=== PATIENT | male | born 1995 | race Caucasian/White ===

== ENCOUNTER 2017-09-12 13:34 | Emergency (ER) | payer BC ==
[2017-09-12 16:59] VITALS: BP 145/73
--- NOTE | 2017-09-12 17:23 | UC ---
Knee Pain HPI - HPI Summary HPI Summary: 21 yo male injured his right knee snow boarding landed on knee yesterday able to continue snow boarding when he got home knee was swollen hurts medially justino slightly - History of Current Complaint Chief Complaint: UCUpperExtremity Stated Complaint: RIGHT KNEE INJURY Time Seen by Provider: 09/12/17 17:07 Hx Obtained From: Patient Onset/Duration: Sudden Onset Severity Initially: Moderate Severity Currently: Moderate Pain Intensity: 8 Pain Scale Used: 0-10 Numeric Character: Dull, Aching Aggravating Factor(s): Movement, Weight Bearing Alleviating Factor(s): Rest Associated Signs And Symptoms: Positive: Swelling - Risk Factors Septic Arthritis Risk Factor: Negative - Allergies/Home Medications Allergies/Adverse Reactions: Allergies Allergy/AdvReac Type Severity Reaction Status Date / Time No Known Allergies Allergy Verified 09/12/17 16:59 PMH/Surg Hx/FS Hx/Imm Hx Previously Healthy: Yes - Surgical History Surgical History: None - Family History Known Family History: Negative: Cardiac Disease, Hypertension, Diabetes - Social History Alcohol Use: Occasionally Substance Use Type: Marijuana Substance Use Comment - Amount & Last Used: last used 3 hours ago. daily use Smoking Status (MU): Light Every Day Tobacco Smoker Type: Cigarettes Amount Used/How Often: 2-3 cigarettes daily - Immunization History Most Recent Tetanus Shot: unknown Vaccination Up to Date: Yes Review of Systems Constitutional: Negative Skin: Negative Eyes: Negative ENT: Negative Respiratory: Negative Cardiovascular: Negative Gastrointestinal: Negative Genitourinary: Negative Motor: Negative Neurovascular: Negative Musculoskeletal: Arthralgia, Edema Neurological: Negative Psychological: Negative Is Patient Immunocompromised?: No All Other Systems Reviewed And Are Negative: Yes Physical Exam Triage Information Reviewed: Yes Appearance: Well-Appearing, No Pain Distress, Well-Nourished Vital Signs: Initial Vital Signs Temp 99.1 F 09/12/17 16:54 Pulse 68 09/12/17 16:54 Resp 16 09/12/17 16:54 BP 145/73 09/12/17 16:54 Pulse Ox 99 09/12/17 16:54 Vital Signs Reviewed: Yes Eyes: Positive: Conjunctiva Clear ENT: Positive: Hearing grossly normal. Negative: Trismus, Muffled voice, Hoarse voice Neck: Positive: Supple Respiratory: Positive: Lungs clear, Normal breath sounds, No respiratory distress Cardiovascular: Positive: RRR, No Murmur Musculoskeletal: Positive: ROM Intact, Other: - knee stable/large prepatellar effusion Psychological Exam: Normal Skin Exam: Normal Knee Pain Course/Dx - Differential Dx/Diagnosis Provider Diagnoses: right knee contusion. right pre patellar effusion Discharge - Discharge Plan Condition: Stable Disposition: HOME Patient Education Materials: Contusion in Adults (ED), R.I.C.E. Treatment (ED) Referrals: Jairo Parra MD [Medical Doctor] - As Soon As Possible Additional Instructions: your xr showed no fracture remove syd at bedtime you may re wrap tomorrow elevate ice advil or aleve you have a large prepatellar effusion ....a collection of fluid in your prepatellar bursa I suggest an orthopedic follow up
--- NOTE | 2017-09-12 17:41 | RAD ---
HISTORY: Right knee injury COMPARISONS: None VIEWS: 4, Frontal, lateral, axial, and oblique views of the right knee FINDINGS: BONE DENSITY: Normal. BONES: There is no displaced fracture. JOINTS: There is no arthropathy. There is no suprapatellar joint effusion or lipohemarthrosis. ALIGNMENT: There is no dislocation. SOFT TISSUES: There is prepatellar soft tissue swelling. OTHER FINDINGS: None. IMPRESSION: PREPATELLAR SOFT TISSUE SWELLING. NO ACUTE OSSEOUS INJURY. IF SYMPTOMS PERSIST, RECOMMEND REPEAT IMAGING.
== END 2017-09-12 18:00 | disposition home or self-care (01) ==
LOC: UCCORT 13:34
DX: S80.01XA Contusion of right knee, initial encounter (principal); M25.461 Effusion, right knee; X58.XXXA Exposure to other specified factors, initial encounter; Y93.23 Activity, snow (alpine) (downhill) skiing, snowboarding, sledding, tobogganing and snow tubing; Y92.9 Unspecified place or not applicable; F12.90 Cannabis use, unspecified, uncomplicated; F17.210 Nicotine dependence, cigarettes, uncomplicated
CPT/HCPCS: 99212; G0463

== ENCOUNTER 2018-05-13 16:17 | Emergency (ER) | payer BC ==
[2018-05-13 17:07] VITALS: BP 129/67
--- NOTE | 2018-05-13 18:13 | UC ---
Knee Pain HPI - HPI Summary HPI Summary: pt c/o sudden onset of right knee swelling, pain, erythema. Denies injury or recent trauma. Denies recent illness. - History of Current Complaint Chief Complaint: UCLowerExtremity Stated Complaint: RIGHT KNEE PAIN Time Seen by Provider: 05/13/18 17:25 Hx Obtained From: Patient Onset/Duration: Sudden Onset, Lasting Days, Still Present Severity Initially: Moderate Severity Currently: Severe Pain Intensity: 9 Character: Dull, Aching, Stiffness Aggravating Factor(s): Movement, Weight Bearing, Prolonged Standing, Stairs Alleviating Factor(s): Nothing Associated Signs And Symptoms: Positive: Swelling, Redness Able to Bear Weight: Yes - minimal - Risk Factors Septic Arthritis Risk Factor: Negative Gout Risk Factor: Male - Allergies/Home Medications Allergies/Adverse Reactions: Allergies Allergy/AdvReac Type Severity Reaction Status Date / Time No Known Allergies Allergy Verified 05/13/18 17:08 PMH/Surg Hx/FS Hx/Imm Hx Previously Healthy: Yes - Surgical History Surgical History: None - Family History Known Family History: Negative: Cardiac Disease, Hypertension, Diabetes - Social History Occupation: Employed Full-time Lives: With Family Alcohol Use: Occasionally Substance Use Type: Marijuana Substance Use Comment - Amount & Last Used: last used 3 hours ago. daily use Smoking Status (MU): Light Every Day Tobacco Smoker Type: Cigarettes Amount Used/How Often: 2-3 cigarettes daily Have You Smoked in the Last Year: Yes - Immunization History Most Recent Tetanus Shot: unknown Vaccination Up to Date: Yes Review of Systems Constitutional: Negative Skin: Other - erythema Eyes: Negative ENT: Negative Respiratory: Negative Cardiovascular: Negative Gastrointestinal: Negative Genitourinary: Negative Motor: Decreased ROM - right knee Neurovascular: Negative Musculoskeletal: Arthralgia, Decreased ROM, Edema, Myalgia Neurological: Negative Psychological: Negative Is Patient Immunocompromised?: No All Other Systems Reviewed And Are Negative: Yes Physical Exam Triage Information Reviewed: Yes Appearance: Well-Appearing Vital Signs: Initial Vital Signs Temp 98.4 F 05/13/18 17:03 Pulse 79 05/13/18 17:03 Resp 16 05/13/18 17:03 BP 129/67 05/13/18 17:03 Pulse Ox 100 05/13/18 17:03 Vital Signs Reviewed: Yes Eye Exam: Normal ENT Exam: Normal Dental Exam: Normal Neck exam: Normal Respiratory: Positive: No respiratory distress Musculoskeletal Exam: Other Musculoskeletal: Positive: ROM Limited @ - right knee, Edema @ - left anterior proximal medial knee, palpable, soft mass, c/o timur wiht palpation, mild circular erythema with edema Neurological Exam: Normal Psychological Exam: Normal Skin Exam: Other - erythema Diagnostics - Radiology No standard instances Radiology Interpretation Completed By: Radiologist - radiologist did not read xray prior to discharge. Knee Pain Course/Dx - Differential Dx/Diagnosis Differential Diagnosis/HQI/PQRI: Bursitis, DVT, Gout, Infection Provider Diagnoses: right knee bursitis Discharge - Sign-Out/Discharge Documenting (check all that apply): Patient Departure All imaging exams completed and their final reports reviewed: No - Discharge Plan Condition: Stable Disposition: HOME Prescriptions: Sulfamethox/Trimethoprim DS* [Bactrim DS 800/160 TAB*] 1 tab PO Q12H #20 tab Patient Education Materials: Knee Bursitis (ED) Forms: *Work Release Referrals: Jairo Parra MD [Medical Doctor] - As Soon As Possible Manjit Augustin MD [Primary Care Provider] - - Billing Disposition and Condition Condition: STABLE Disposition: Home
--- NOTE | 2018-05-14 07:16 | RAD ---
INDICATION: Spontaneous swelling and erythema. TECHNIQUE: 4 views of the right knee were obtained. FINDINGS: There is diffuse soft tissue swelling. The bones are normal alignment. No joint effusion or fracture is seen. Joint spaces appear maintained. IMPRESSION: DIFFUSE SOFT TISSUE SWELLING. R0
--- NOTE | 2018-05-14 15:15 | UC ---
- Progress Note Progress Note: Patient Name: JESSIE COHEN Medical Record#: [id number] Ordering Physician: Mickie Nicole NP Acct.#: [id number] : 1995 Age: 22 Sex: M Location: [facility] Exam Date: 05/13/181731 ADM Status: [facility] ER Order Information: KNEE RIGHT 4+ VWS Accession Number: [id number] CPT: 31332 INDICATION: Spontaneous swelling and erythema. TECHNIQUE: 4 views of the right knee were obtained. FINDINGS: There is diffuse soft tissue swelling. The bones are normal alignment. No joint effusion or fracture is seen. Joint spaces appear maintained. IMPRESSION: DIFFUSE SOFT TISSUE SWELLING. R0 <Electronically signed by Cruz Choi MD in OV> 05/14/18712 Dictated By: Cruz Choi MD Dictated Date/Time: 05/14/18712 Transcribed Date/Time: 05/14/18709 Copy to: CC:Mickie Nicole NP; Genesis Moore MD; Manjit Augustin MD Imaging - [facility] Urgent [facility] [address] [address] ph ([phone]) ph ([phone]) ph ([phone]) This report is only to be considered final once signed by the Provider(s) as displayed in the "<Electronically Signed by >" field (s). Absence of a signature indicates the report is in a draft status and still needs to be finalized. In the event this document was created by someone other than the signing Provider, the individual initiating the document will be listed in the "Entered by:" or "Dictated by:" rea. 1 of 1 Discharge - Sign-Out/Discharge Documenting (check all that apply): Post-Discharge Follow Up All imaging exams completed and their final reports reviewed: Yes - Discharge Plan Condition: Stable Disposition: HOME Prescriptions: Sulfamethox/Trimethoprim DS* [Bactrim DS 800/160 TAB*] 1 tab PO Q12H #20 tab Patient Education Materials: Knee Bursitis (ED) Forms: *Work Release Referrals: Jairo Parra MD [Medical Doctor] - As Soon As Possible Manjit Augustin MD [Primary Care Provider] - - Billing Disposition and Condition Condition: STABLE Disposition: Home
== END 2018-05-13 18:43 | disposition home or self-care (01) ==
LOC: UCCORT 16:17
DX: M71.9 Bursopathy, unspecified (principal)
CPT/HCPCS: 99212; G0463

== ENCOUNTER 2019-07-07 18:19 | Emergency (ER) | payer BC ==
--- NOTE | 2019-07-07 19:00 | ED ---
Psychiatric Complaint - HPI Summary HPI Summary: This pt is 23 y/o male presenting to [facility] c/o racing thoughts, paranoia, and feeling anxious since 2 days ago after deciding to quit drug abuse. Pt reports he was consuming MDMA and decided to quit 3 days ago, he last used at 11:00 on 07/04/19. He notes he has not drank alcohol since then as well. Pt reports since then he has been feeling jittery, anxious, with racing thoughts of paranoia. He describes he feels like he is projecting his own thoughts for no reason. Pt denies SI or HI thoughts/plan. Family members report pt is very anxious, with irritable mood swings, and has thoughts that are not realistic. Pt does admit to smoking cigarettes and marijuana. PMHx: depression, anxiety. He does not take any medications. Per family member, pt went to rehab 3 years ago, was in the same situation, and admitted to a psych unit for 7 days. - History Of Current Complaint Chief Complaint: EDMentalHealth Time Seen by Provider: 07/07/19 18:53 Hx Obtained From: Patient, Family/Store Host Onset/Duration: Lasting Days, Still Present Timing: Days Severity Currently: Moderate Character: Manic Aggravating Factor(s): Recent Stress Alleviating Factor(s): Nothing Associated Signs And Symptoms: Positive: Paranoid Behavior Related History: Positive For: Prior Psychiatric Issues Has Suicidal: Denies: Thoughts, With A Plan Has Homicidal: Denies: Thoughts, With A Plan Recent Stressor(s): coming off drugs - Allergies/Home Medications Allergies/Adverse Reactions: Allergies Allergy/AdvReac Type Severity Reaction Status Date / Time pollen extracts Allergy Eyes Verified 07/07/19 18:32 Itchy/Swollen/Red/Watery Home Medications: Home Medications NK [No Home Medications Reported] 07/07/19 [History Confirmed 07/07/19] PMH/Surg Hx/FS Hx/Imm Hx Endocrine/Hematology History: Denies: Hx Diabetes Respiratory History: Reports: Hx Asthma Psychiatric History: Reports: Hx Substance Abuse Infectious Disease History: No Infectious Disease History: Denies: Traveled Outside the [place] in Last 30 Days - Family History Known Family History: Negative: Cardiac Disease, Hypertension, Diabetes - Social History Alcohol Use: Occasionally Substance Use Type: Reports: Marijuana Substance Use Comment - Amount & Last Used: 1800 today Smoking Status (MU): Light Every Day Tobacco Smoker Type: Cigarettes Amount Used/How Often: 2-3 cigarettes daily Have You Smoked in the Last Year: Yes Review of Systems Constitutional: Other - POSITIVE: jittery Negative: Fever Cardiovascular: Negative Respiratory: Negative Gastrointestinal: Negative Psychological: Other - POSITIVE: paranoia, racing thoughts, anxious, irritable Positive: Anxious. Negative: Other - NEGATIVE: SI or HI All Other Systems Reviewed And Are Negative: Yes Physical Exam - Summary Physical Exam Summary: VITAL SIGNS: Reviewed. GENERAL: Patient is a well-developed and nourished male who is lying comfortable in the stretcher. Patient is not in any acute respiratory distress. HEAD AND FACE: No signs of trauma. No ecchymosis, hematomas or skull depressions. No sinus tenderness. EYES: PERRLA, EOMI x 2, No injected conjunctiva, no nystagmus. EARS: Hearing grossly intact. Ear canals and tympanic membranes are within normal limits. MOUTH: Oropharynx within normal limits. NECK: Supple, trachea is midline, no adenopathy, no JVD, no carotid bruit, no c- spine tenderness, neck with full ROM. CHEST: Symmetric, no tenderness at palpation LUNGS: Clear to auscultation bilaterally. No wheezing or crackles. CVS: Regular rate and rhythm, S1 and S2 present, no murmurs or gallops appreciated. ABDOMEN: Soft, non-tender. No signs of distention. No rebound no guarding, and no masses palpated. Bowel sounds are normal. EXTREMITIES: FROM in all major joints, no edema, no cyanosis or clubbing. NEURO: Alert and oriented x 3. No acute neurological deficits. Speech is normal and follows commands. SKIN: Dry and warm PSYCH: Pt is anxious. He denies SI or HI. Triage Information Reviewed: Yes Vital Signs On Initial Exam: Initial Vitals Temp Pulse Resp BP Pulse Ox 98.1 F 98 16 166/114 99 07/07/19 18:28 07/07/19 18:28 07/07/19 18:28 07/07/19 18:28 07/07/19 18:28 Vital Signs Reviewed: Yes Procedures - Sedation Patient Received Moderate/Deep Sedation with Procedure: No Diagnostics - Vital Signs Vital Signs Temp Pulse Resp BP Pulse Ox 07/07/19 18:28 98.1 F 98 16 166/114 99 - Laboratory Result Diagrams: 07/07/19 19:18 07/07/19 19:18 Lab Statement: Any lab studies that have been ordered have been reviewed, and results considered in the medical decision making process. Course/Dx - Course Assessment/Plan: Blood work without any significant abnormalities except for WBC of 11.2, glucose of 129, toxicology is positive for cannabinoids. This pt was medically cleared. Pt is waiting for a MHE. He is alert and oriented x3, and hemodynamically stable. Pt will be signed out to Dr. Falcon pending mental health evaluation and disposition. - Differential Dx/Clinical Impression Provider Diagnosis: Paranoia Discharge ED - Sign-Out/Discharge Documenting (check all that apply): Sign-Out Patient Signing out patient TO: Dianelys Falcon - pending MHE - Discharge Plan Condition: Stable Referrals: Manjit Augustin MD [Primary Care Provider] - - Billing Disposition and Condition Condition: STABLE - Attestation Statements Document Initiated by Scribe: Yes Documenting Scribe: Stephy Silva Provider For Whom Adria is Documenting (Include Credential): Kirk Patel MD Scribe Attestation: Stephy Lake, scribed for Kirk Patel MD on 07/07/19 at 2157. Scribe Documentation Reviewed: Yes Provider Attestation: The documentation as recorded by the Stephy hernandes accurately reflects the service I personally performed and the decisions made by , Kirk Patel MD Status of Scribe Document: Viewed
[2019-07-07 19:23] LABS: ABS Basophils 0.1 10^3/ul (0-0.2); ABS Eosinophils 0.1 10^3/ul (0-0.6); ABS Lymphocytes 2.3 10^3/ul (1.0-4.8); ABS Neutrophils 7.7 10^3/ul (1.5-7.7); Hematocrit 47 % (42-52); Hemoglobin 16.3 g/dL (14.0-18.0); Lymphocyte % 20.1 %; Mean Corpuscular HGB Conc 35 g/dL (31-36); Mean Corpuscular Hemoglobin 31 pg (27-31); Mean Corpuscular Volume 90 fL (80-94); Mean Platelet Volume 7.6 fL (7.4-10.4); Platelet Count 301 10^3/uL (150-450); Red Blood Count 5.28 10^6 /uL (4.18-5.48); Red Cell Distribution Width 13 % (10-15); White Blood Count 11.2 10^3/uL (3.5-10.8)
[2019-07-07 19:36] LABS: Urine Appearance Clear; Urine Bilirubin Negative (Negative); Urine Blood Negative (Negative); Urine Color Yellow; Urine Glucose Negative (Negative); Urine Ketones Trace (Negative); Urine Nitrite Negative (Negative); Urine Protein Negative (Negative); Urine Specific Gravity 1.026 (1.010-1.030); Urine Urobilinogen Negative (Negative)
[2019-07-07 19:39] LABS: Urine Bacteria Absent (Absent); Urine Red Blood Cell Trace(0-2/hpf) (Absent); Urine Squamous Epithelial Cell Present (Absent); Urine White Blood Cell Trace(0-5/hpf) (Absent)
[2019-07-07 19:40] LABS: ALT 10 U/L (7-52); AST 13 U/L (13-39); Albumin 4.6 g/dL (3.2-5.2); Albumin/Globulin Ratio 1.6 (1-3); Alkaline Phosphatase 65 U/L (34-104); Anion Gap 6 mmol/L (2-11); BUN/Creatinine Ratio 10.2 (8-20); Blood Urea Nitrogen 10 mg/dL (6-24); CO2 Carbon Dioxide 28 mmol/L (22-32); Calcium 9.9 mg/dL (8.6-10.3); Chloride 102 mmol/L (101-111); EGFR African American 114.7 (>60); EGFR Non-African American 94.8 (>60); Globulin 2.9 g/dL (2-4); Glucose 129 mg/dL (70-100); Sodium 136 mmol/L (135-145); Total Protein 7.5 g/dL (6.4-8.9)
[2019-07-07 19:44] LABS: Acetaminophen < 15 mcg/mL; Alcohol < 10 mg/dL (<10); Salicylate < 2.50 mg/dL (<30)
[2019-07-07 19:48] LABS: Urine Benzodiazepine Screen None Detected (None Detect); Urine Opiates Screen None Detected (None Detect)
[2019-07-07 19:59] LABS: TSH (Thyroid Stimulating Horm) 1.37 mcIU/mL (0.34-5.60)
[2019-07-07] MEDS: hydrOXYzine HCL TAB* 50 MG PO ONE (20:25)
--- NOTE | 2019-07-07 21:58 | ED ---
Progress - Progress Note Progress Note: This pt is a sign out to Dr. Falcon from Dr. Patel at shift change 0 pending a MHE and disposition. Re-Evaluation - Re-Evaluation First Eval Re-Evaluation Time: 23:20 Change: Unchanged Comment: Pt was seen by a social media senior associate and myself. He stated that he had not taken any ectasy since thursday. We expressed that we are very concerned about him but unfortunately since he is not homicidal or suicidal we have no legal reason to hold him. He will be discharged home and instructed to follow up with [facility] and seek both psychiatric or drug abuse counseling if he experiances any worsening symptoms. Course/Dx - Course Course Of Treatment: This pt is a sign out to Dr. Falcon from Dr. Patel at shift change 219907/07/19 pending a MHE and disposition. - Diagnoses Provider Diagnoses: Anxiety, Drug use Discharge ED - Sign-Out/Discharge Documenting (check all that apply): Patient Departure - discharge , Receiving Sign-Out Receiving patient FROM: Kirk Patel - Discharge Plan Condition: Stable Disposition: HOME Prescriptions: hydrOXYzine HCL TAB* [Atarax TAB 50 MG *] 50 mg PO QID PRN #20 tab PRN Reason: Itching Patient Education Materials: Polysubstance Abuse (ED), Anxiety (ED) Referrals: [facility], AND [facility] [place] [Other] (PLEASE FOLLOW UP WITH DRUG TREATMENT) Manjit Augustin MD [Primary Care Provider] - 2 Days Additional Instructions: PLEASE FOLLOW UP WITH YOUR PRIMARY CARE PHYSICIAN IN 1-3 DAYS AND EITHER RETURN TO [facility], SEEK OUT PSYCHIATRIC HELP, OR DRUG COUNSELING IF YOU HAVE ANY WORSENING OR NEW SYMPTOMS. - Billing Disposition and Condition Condition: STABLE Disposition: Home - Attestation Statements Document Initiated by Scribe: Yes Documenting Scribe: Anthony Wiley Provider For Whom Anneibmuriel is Documenting (Include Credential): Dianelys Falcon MD Scribe Attestation: Anthony Lake scribed for Dianelys Falcon MD on 07/08/19 at 0322. Scribe Documentation Reviewed: Yes Provider Attestation: The documentation as recorded by the Anthony hernandes accurately reflects the service I personally performed and the decisions made by me, Dianelys Falcon MD Status of Scribe Document: Viewed Procedures - Sedation Patient Received Moderate/Deep Sedation with Procedure: No Consult Consult: Dr. Sotelo, psychiatrist, consulted the doctor at 2250 and stated that the pt should be a mental health hold until he can come in tomorrow to evaluate the pt due to his parent's concerns of SI and HI. Dr. Sotelo was called at 2325 after I had re-evaluated the patient with another social media senior associate. The pt stated that he was not SI or HI and the social media senior associate agreed and spoke to Dr. Sotelo who now agrees that the patient is safe to be discharged home.
[2019-07-07 23:52] VITALS: BP 156/78
== END 2019-07-07 23:50 | disposition home or self-care (01) ==
LOC: ED 18:19
DX: F41.9 Anxiety disorder, unspecified (principal); F22 Delusional disorders; F19.90 Other psychoactive substance use, unspecified, uncomplicated; F17.210 Nicotine dependence, cigarettes, uncomplicated
CPT/HCPCS: 36415; 80053; 80307; 80320; 80329; 81003; 81015; 84443; 85025; 87086; 99284; A9270-GY; G0480